=== PATIENT | female | born 1955 | race Caucasian/White ===

== ENCOUNTER → 2019-07-09 13:46 | Outpatient (BNVA) | payer BC, SELFPAY | PROVIDERS: Family Provider Family Medicine; PCP Family Medicine; Visit Provider Internal Medicine Rheumatology | DX: M81.0 Age-related osteoporosis without current pathological fracture (principal); Z79.899 Other long term (current) drug therapy; Z71.3 Dietary counseling and surveillance; Z68.33 Body mass index [BMI] 33.0-33.9, adult | CPT/HCPCS: 36415; 99214 ==

== ENCOUNTER → 2019-07-09 14:45 | Outpatient (BNVA) | payer BC, SELFPAY | PROVIDERS: Family Provider Family Medicine; PCP Family Medicine; Visit Provider Internal Medicine Rheumatology | DX: M81.0 Age-related osteoporosis without current pathological fracture (principal); Z79.899 Other long term (current) drug therapy; Z71.3 Dietary counseling and surveillance | CPT/HCPCS: 85025 ==

== ENCOUNTER 2019-07-09 15:09 | Outpatient (CLI) | payer BC, SELFPAY ==
--- NOTE | 2019-07-09 15:19 | XR_ITS ---
WS: [id number] HAND LEFT TECHNIQUE: 3 views of the left hand CLINICAL INFORMATION: osteoporosis COMPARISON: None. FINDINGS: Hypertrophic spurring involving the second and third metacarpal heads. Marked periarticular hypertrop hic changes with ankylosis involving the third PIP and DIP joints with soft tissue edema. Smaller per iarticular hypertrophic changes involving the fourth DIP. Radiocarpal joint: Normal. Carpal bones: Normal. XR/XR hand LT min 3V* [id number] IMPRESSION: 1. Marked hypertrophic changes and ankylosis involving the third PIP and DIP j oints with soft tissue edema 2. Hypertrophic spurring second third metacarpal heads.
--- NOTE | 2019-07-09 15:19 | XR_ITS ---
WS: [id number] HAND RIGHT TECHNIQUE: 3 views of the right hand CLINICAL INFORMATION: osteoporosis COMPARISON: None. FINDINGS: Normal metacarpals. Normal MCP joint. Metacarpal heads are normal in appearance. Normal PIP and DIP j oints. No evidence of acute fracture or dislocation. Radiocarpal joint: Normal. Carpal bones: Normal. XR/XR hand RT min 3V* [id number] IMPRESSION: Normal right hand.
== END 2019-07-09 15:10 | disposition home or self-care (01) ==
PROVIDERS: Family Provider Family Medicine; PCP Family Medicine; Visit Provider Internal Medicine Rheumatology
DX: M81.0 Age-related osteoporosis without current pathological fracture (principal); M24.642 Ankylosis, left hand; Z79.899 Other long term (current) drug therapy
CPT/HCPCS: 73130; 80076; 82306; 82565

== ENCOUNTER → 2019-10-15 09:41 | Outpatient (BNVA) | payer BC, SELFPAY | PROVIDERS: Family Provider Family Medicine; PCP Family Medicine; Visit Provider Internal Medicine Rheumatology | DX: Z79.899 Other long term (current) drug therapy (principal); M81.0 Age-related osteoporosis without current pathological fracture; Q68.1 Congenital deformity of finger(s) and hand; F17.210 Nicotine dependence, cigarettes, uncomplicated | CPT/HCPCS: 36415; 82310; 82565; 99214 ==

== ENCOUNTER → 2020-04-21 08:36 | Outpatient (BNVA) | payer BC, SELFPAY | PROVIDERS: Family Provider Family Medicine; PCP Family Medicine; Visit Provider Internal Medicine Rheumatology | DX: M81.0 Age-related osteoporosis without current pathological fracture (principal); Z79.899 Other long term (current) drug therapy; Z71.3 Dietary counseling and surveillance; Q68.1 Congenital deformity of finger(s) and hand; Z68.34 Body mass index [BMI] 34.0-34.9, adult | CPT/HCPCS: 36415; 82306; 82310; 82565; 99214 ==

== ENCOUNTER 2020-04-27 14:59 | Outpatient (CLI) | payer BC, OTHER, SELFPAY ==
[2020-04-27 15:10] VITALS: BP 153/92; PULSE 93; TEMP 36.6; O2SAT 90
[2020-04-27] MEDS: denosumab 60 mg SDV SUBCUT (15:25)
[2020-04-27 15:29] VITALS: BMI 34.0
[2020-04-27 15:50] VITALS: BP 142/92; PULSE 83; TEMP 36.9; O2SAT 92
== END 2020-04-27 15:00 | disposition home or self-care (01) ==
LOC: RHEOACUTE 15:01
PROVIDERS: Family Provider Family Medicine; PCP Family Medicine; Visit Provider Internal Medicine Rheumatology
DX: M81.0 Age-related osteoporosis without current pathological fracture (principal)
CPT/HCPCS: 96372; J0897

== ENCOUNTER → 2020-07-20 11:00 | Outpatient (BNVA) | payer BC, SELFPAY | PROVIDERS: Family Provider Family Medicine; PCP Family Medicine; Visit Provider Nurse Practitioner Family | DX: K04.7 Periapical abscess without sinus (principal); R03.0 Elevated blood-pressure reading, without diagnosis of hypertension; E55.9 Vitamin D deficiency, unspecified | CPT/HCPCS: 80053; 80061; 82306; 84443 ==

== ENCOUNTER 2020-11-10 11:27 | Outpatient (CLI) | payer BC, SELFPAY ==
[2020-11-10 12:49] LABS: Albumin Level 3.7 g/dL (3.5-5.2); Calcium 8.5 mg/dL (8.5-10.5); Glomerular Filtration Rate 72.2 mL/min (90-130)
[2020-11-10 13:04] LABS: 25 Hydroxy Vitamin D 33 ng/mL (30-100)
[2020-11-10 13:40] VITALS: BP 154/85; PULSE 93; RESP 20; TEMP 36.2; O2SAT 95
[2020-11-10] MEDS: denosumab 60 mg SDV SUBCUT (13:40)
== END 2020-11-10 11:28 | disposition home or self-care (01) ==
LOC: ONCMED 11:32
PROVIDERS: Family Provider Family Medicine; PCP Family Medicine; Referring Provider Internal Medicine Rheumatology; Visit Provider Internal Medicine Rheumatology
DX: E55.9 Vitamin D deficiency, unspecified (principal); M81.0 Age-related osteoporosis without current pathological fracture; Z79.899 Other long term (current) drug therapy; Q68.1 Congenital deformity of finger(s) and hand; Z71.3 Dietary counseling and surveillance; F17.210 Nicotine dependence, cigarettes, uncomplicated
CPT/HCPCS: 36415; 82040; 82306; 82310; 82565; 96372; 99214; J0897

== ENCOUNTER → 2021-04-25 14:44 | Outpatient (BNVA) | payer BC, MEDICARE, SELFPAY | PROVIDERS: Family Provider Family Medicine; PCP Family Medicine; Visit Provider Nurse Practitioner Family | DX: R30.0 Dysuria (principal) | CPT/HCPCS: 81000 ==

== ENCOUNTER → 2021-05-23 11:28 | Outpatient (BNVA) | payer BC, MEDICARE, SELFPAY | PROVIDERS: Family Provider Family Medicine; PCP Family Medicine; Visit Provider Internal Medicine Rheumatology | DX: M81.0 Age-related osteoporosis without current pathological fracture (principal); Z79.899 Other long term (current) drug therapy | CPT/HCPCS: 80076; 82306; 82310; 82565; 85025; 86140 ==

== ENCOUNTER → 2021-12-28 14:48 | Outpatient (BNVA) | payer MEDICARE, SELFPAY | PROVIDERS: Family Provider Family Medicine; PCP Family Medicine; Visit Provider Nurse Practitioner Family | DX: R30.0 Dysuria (principal); N39.0 Urinary tract infection, site not specified; R31.9 Hematuria, unspecified; R50.9 Fever, unspecified | CPT/HCPCS: 80053; 81000; 81003; 85025 ==

== ENCOUNTER → 2021-12-29 08:13 | Outpatient (BNVA) | payer MEDICARE, SELFPAY | PROVIDERS: Family Provider Family Medicine; PCP Family Medicine; Visit Provider Nurse Practitioner Family | DX: R30.0 Dysuria (principal); N39.0 Urinary tract infection, site not specified; R31.9 Hematuria, unspecified; R50.9 Fever, unspecified | CPT/HCPCS: 87077; 87086; 87184 ==

== ENCOUNTER → 2022-04-23 09:43 | Outpatient (BNVA) | payer MEDICARE, SELFPAY | PROVIDERS: Family Provider Family Medicine; PCP Family Medicine; Visit Provider Nurse Practitioner Family | DX: R41.82 Altered mental status, unspecified (principal); N39.0 Urinary tract infection, site not specified; R31.9 Hematuria, unspecified | CPT/HCPCS: 81003; 87077; 87086; 87184 ==

== ENCOUNTER → 2022-05-16 08:50 | Outpatient (BNVA) | payer MEDICARE, SELFPAY | PROVIDERS: Family Provider Family Medicine; PCP Family Medicine; Visit Provider Nurse Practitioner Family | DX: R30.0 Dysuria (principal) | CPT/HCPCS: 81003; 87077; 87086; 87184 ==

== ENCOUNTER → 2022-05-29 12:51 | Outpatient (BNVA) | payer MEDICARE, SELFPAY | PROVIDERS: Family Provider Family Medicine; PCP Nurse Practitioner Family; Visit Provider Internal Medicine Rheumatology | DX: M81.0 Age-related osteoporosis without current pathological fracture (principal); Z79.899 Other long term (current) drug therapy; Z71.3 Dietary counseling and surveillance; Q68.1 Congenital deformity of finger(s) and hand | CPT/HCPCS: 36415; 80076; 82306; 82310; 82565; 85025; 86140; 99214 ==

== ENCOUNTER 2022-06-18 14:03 | Outpatient (CLI) | payer MEDICARE, SELFPAY ==
--- NOTE | 2022-06-18 14:30 | XR_ITS ---
WS: [id number] DEXA (DUAL ENERGY X-RAY ABSORPTIOMETRY) Bone mineral density was performed using a [employer] machine. HISTORY: M81.0 - Age-related osteoporosis without current pathology... COMPARISON: 01/01/2019 Lumbar spine BMD (L1-L4): 0.872 g/cm2 T score: -2.6 Z score: -1.7 Total hip BMD: Left: 0.866 g/cm2. T score: -1.1 Z score: -0.4 Right: 0.841 g/cm2. T score: -1.3 Z score: -0.6 10 year probability of a major osteoporotic fracture is 19.1%. Compared to the prior study from 01/01/2019. Lumbar spine bone mineral density has decreased by 5.2%. Bilateral hips bone mineral density has increased by 0.7%. XR/XR DEXA axial skeleton* [id number] IMPRESSION: OSTEOPOROSIS based upon the WHO classification for females. Significant decrease in bone mineral density within the lumbar spine since the prior study. No significant change involving the hips.
== END 2022-06-18 14:04 | disposition home or self-care (01) ==
LOC: RAD 14:09
PROVIDERS: Family Provider Family Medicine; PCP Nurse Practitioner Family; Visit Provider Internal Medicine Rheumatology
DX: M81.0 Age-related osteoporosis without current pathological fracture (principal)
CPT/HCPCS: 77080

== ENCOUNTER → 2022-07-30 15:38 | Outpatient (BNVA) | payer MEDICARE, SELFPAY | PROVIDERS: Family Provider Family Medicine; PCP Nurse Practitioner Family; Visit Provider Nurse Practitioner Family | DX: R31.9 Hematuria, unspecified (principal) | CPT/HCPCS: 81003; 87077; 87086; 87184 ==

== ENCOUNTER 2022-08-10 09:33 | Oncology outpatient (recurring) (ONCR) | payer MEDICARE, SELFPAY ==
--- NOTE | 2022-08-10 10:01 | PC.NURSE ---
Patient arrived for scheduled prolia injection, however patient stated she had recent dental extractions mid june for denture application. Clarified with Dr. Flynn office, Dr Silvestre MESSINA today but Dr. Lubin states from rheumatology standpoint ok to give prolia however asked us to clarify with Dr. Briggs DDS. Call placed Dr. Briggs recommends prolia to be held until 4 months from extraction, which occurred on 07/06/22. Kym ma at Dr. Rivers office. Patient to re-schedule in 4 months. Kizzy DIAZN, RN
== END 2022-08-10 23:59 | disposition home or self-care (01) ==
PROVIDERS: PCP Nurse Practitioner Family; Visit Provider Internal Medicine Rheumatology
DX: Z53.9 Procedure and treatment not carried out, unspecified reason (principal)

== ENCOUNTER → 2022-08-22 11:30 | Outpatient (BNVA) | payer MEDICARE, SELFPAY | PROVIDERS: PCP Nurse Practitioner Family; Visit Provider Nurse Practitioner | DX: J44.9 Chronic obstructive pulmonary disease, unspecified (principal); R91.1 Solitary pulmonary nodule | CPT/HCPCS: 71046 ==

== ENCOUNTER 2022-10-30 09:58 | Outpatient (CLI) | payer MEDICARE, SELFPAY ==
--- NOTE | 2022-10-30 10:13 | CT_ITS ---
WS: [id number] CT CHEST TECHNIQUE: Noncontrast CT of the chest with coronal and sagittal reformatted images. CLINICAL INFORMATION: LYMPHADENOPATHY, MEDINASTINAL COMPARISON: None. DLP: 232.[address] scans at [facility] use at least one of these dose optimization techniques: automated e xposure control; mA and/or kV adjustment per patient size (includes targeted exams where dose is matc hed to clinical indication); or iterative reconstruction. FINDINGS: Partially evaluated large bulky heterogeneous mass involving the RIGHT kidney measuring 11.2 x 2.6 cm suspicious for renal neoplasm. Recommend further evaluation with contrast-enhanced CT abdomen pelvis . This is only partially included on the upper abdominal images. Normal caliber thoracic aorta. Aortic calcification. Numerous mediastinal and peribronchial lymph nod es not pathologically enlarged. Calcified RIGHT greater than LEFT hilar nodes. No axillary lymphadeno colten. Moderate chronic emphysematous changes. Interstitial thickening in the lung bases. A few calcified gr anulomas. No focal pneumonia or pleural fluid. Slight subsegmental atelectasis in the lung bases. Normal LEFT adrenal gland. Small esophageal hiatal hernia. A few splenic granulomas. Noncontrast panc reas appears normal. Moderate thoracic kyphosis. Anterior hypertrophic changes mid thoracic spine. Posterior projecting RI GHT thyroid nodule measuring 1.8 cm. Chronic appearing RIGHT 7th rib fracture with callus formation. CT/CT chest wo con [id number] IMPRESSION: 1. Partially evaluated large heterogeneous mass involving the RIGHT kidney trini suring 11.2 x 2.6 cm suspicious for renal neoplasm. Recommend further evaluatio n with contrast-enhanced CT abdomen pelvis. 2. Numerous mediastinal and peribronchial lymph nodes not pathologically enlar ged. 3. Lobulated RIGHT thyroid lobe with suggestion of posterior projecting RIGHT thyroid nodule measuring 1.8 cm. This could followed up with ultrasound. 4. Moderate chronic emphysematous changes. Notified JORDYN Day at 10/30/2022 11:49 AM.
== END 2022-10-30 09:59 | disposition home or self-care (01) ==
PROVIDERS: PCP Nurse Practitioner; Visit Provider Nurse Practitioner
DX: R59.0 Localized enlarged lymph nodes (principal); N28.89 Other specified disorders of kidney and ureter; E07.9 Disorder of thyroid, unspecified
CPT/HCPCS: 71250

== ENCOUNTER 2022-11-09 09:58 | Oncology outpatient (recurring) (ONCR) | payer MEDICARE, SELFPAY ==
[2022-11-09 10:45] VITALS: BP 126/83; PULSE 82; RESP 16; TEMP 36.6; O2SAT 95
[2022-11-09 11:13] LABS: Albumin Level 3.7 g/dL (3.5-5.2); Calcium 8.5 mg/dL (8.5-10.5); Glomerular Filtration Rate 71.8 mL/min (90-130)
[2022-11-09 11:29] LABS: 25 Hydroxy Vitamin D 27 ng/mL (30-100)
== END 2022-11-09 23:59 | disposition home or self-care (01) ==
PROVIDERS: PCP Nurse Practitioner; Visit Provider Internal Medicine Rheumatology
DX: M81.0 Age-related osteoporosis without current pathological fracture (principal)
CPT/HCPCS: 36415; 82040; 82306; 82310; 82565

== ENCOUNTER 2022-11-14 08:21 | Outpatient (CLI) | payer MEDICARE, SELFPAY ==
--- NOTE | 2022-11-14 08:39 | US_ITS ---
WS: [id number] ULTRASOUND THYROID TECHNIQUE: Ultrasound of the thyroid. CLINICAL INFORMATION: THYROID ENGLARGEMENT COMPARISON: None. FINDINGS: Thyroid: Right and left thyroid lobes are normal in size and echotexture. Right thyroid lobe: 4.3 cm x 1.6 cm x 2.1 cm Complex RIGHT thyroid nodule measuring 1.1 x 1.1 x 0.5 cm Left thyroid lobe: 3.8 cm x 1.5 cm x 1.6 cm. Isthmus: 0.2 mm. Cervical lymphadenopathy: None. US/US thyroid [id number] IMPRESSION: 1. Complex cystic and solid RIGHT thyroid nodule measuring 1.1 x 1.1 x 1.5 cm. Recommend 12 month follow-up versus FNA. 2. No suspicious LEFT thyroid nodules.
--- NOTE | 2022-11-14 08:39 | CT_ITS ---
WS: [id number] CT ABDOMEN PELVIS TECHNIQUE: Noncontrast CT of the abdomen and pelvis with coronal and sagittal reformatted images. CLINICAL INFORMATION: R KIDNEY MASS COMPARISON: CT chest October 30, 2022 DLP: 531.[address] scans at [facility] use at least one of these dose optimization techniques: automated e xposure control; mA and/or kV adjustment per patient size (includes targeted exams where dose is matc hed to clinical indication); or iterative reconstruction. FINDINGS: Large complex heterogeneous mass involving the RIGHT kidney measures approximately 11.0 x 11.1 x 8.0 cm AP by transverse by craniocaudal. Mass demonstrates prominent internal and surrounding vascularity with heterogeneous internal contents. Deformity and compression of the visualized RIGHT kidney. Find ings most compatible with renal neoplasm. Recommend urology consultation. Renal mass abuts the undersurface of the RIGHT hepatic lobe. . Expansile low-attenuation RIGHT renal vein suspicious for renal vein thrombosis extending to the IVC. Contrast not administered. Small cyst in the liver dome. Normal GE junction. Lung bases are well aerated. Tiny noncalcified nodu le LEFT lower lobe measuring 3.8 mm. Adrenal glands appear normal. Small low-attenuation LEFT renal l esion too small to characterize measuring 13 mm. No hydronephrosis in the LEFT kidney. Noncontrast sp ryan is normal. Sigmoid diverticulosis. No evidence of acute diverticulitis. Enlarged lymph nodes in the mena hepati s. A few normal sized periaortic lymph nodes. A few slightly prominent aortocaval lymph nodes. No pelvic or inguinal lymphadenopathy. CT/CT abdomen pelvis wo con [id number] IMPRESSION: 1. Large heterogeneous RIGHT renal mass described above. Recommend urology con sultation for resection. 2. Suspected expansile low-attenuation thrombus in the RIGHT renal vein extend ing to the IVC junction. 3. Enlarged lymph nodes in the mena hepatis. A few slight prominent but russ l sized aortocaval and periaortic lymph nodes. 4. No hydronephrosis in either kidney. 5. Noncalcified pulmonary nodule LEFT lower lobe measuring 3.8 mm. 6. LEFT renal lesion too small to characterize measuring 13 mm. This can be fu rther evaluated with ultrasound or contrast.
== END 2022-11-14 08:22 | disposition home or self-care (01) ==
PROVIDERS: PCP Nurse Practitioner; Visit Provider Nurse Practitioner
DX: N28.89 Other specified disorders of kidney and ureter (principal); E04.1 Nontoxic single thyroid nodule; R59.0 Localized enlarged lymph nodes; R91.1 Solitary pulmonary nodule
CPT/HCPCS: 74176; 76536

== ENCOUNTER 2022-11-14 09:28 | Oncology outpatient (recurring) (ONCR) | payer MEDICARE, SELFPAY ==
[2022-11-14] MEDS: denosumab 60 mg SDV SUBCUT (09:53)
[2022-11-14 09:57] VITALS: BP 166/84; PULSE 81; TEMP 36.5; O2SAT 97
== END 2022-12-10 23:59 | disposition home or self-care (01) ==
PROVIDERS: PCP Nurse Practitioner; Visit Provider Internal Medicine Rheumatology
DX: M81.0 Age-related osteoporosis without current pathological fracture (principal)
CPT/HCPCS: 96372; J0897

== ENCOUNTER → 2022-11-27 13:16 | Outpatient (BNVA) | payer MEDICARE, SELFPAY | PROVIDERS: PCP Nurse Practitioner; Visit Provider Internal Medicine Rheumatology | DX: M81.0 Age-related osteoporosis without current pathological fracture (principal); M79.672 Pain in left foot; Z79.899 Other long term (current) drug therapy; Z71.3 Dietary counseling and surveillance; Q68.1 Congenital deformity of finger(s) and hand | CPT/HCPCS: 73630; 99214 ==

== ENCOUNTER 2023-01-31 15:44 | Outpatient (CLI) | payer MEDICARE, SELFPAY ==
--- NOTE | 2023-01-31 | MRR_ITS ---
PROCEDURE INFORMATION: Exam: MR Abdomen Without and With Contrast Exam date and time: 01/31/2023 4:28 PM Age: 68 years old Clinical indication: Abnormal findings; Mass, lump, or swelling; Kidney, right; Additional info: Right kidney mass TECHNIQUE: Imaging protocol: Magnetic resonance imaging of the abdomen without and with contrast. COMPARISON: No relevant prior studies available. FINDINGS: Liver: 1.0 cm hepatic cyst. Gallbladder and bile ducts: Unremarkable. No stones. No ductal dilation. Pancreas: Unremarkable. No ductal dilation. Spleen: Unremarkable. No splenomegaly. Adrenal glands: Unremarkable. No mass. Kidneys and ureters: 11.9 x 11.7 x 11.6 cm inhomogenous lobulated enhancing mass in the right kidney. 1.8 cm right renal cyst. 1.6 cm left renal cyst. Stomach and bowel: Visualized stomach and intestines are unremarkable. Intraperitoneal space: No free fluid. Vasculature: The right renal mass extends into the renal vein with possible slight extension into the superior vena cava. Bones/joints: Unremarkable. Soft tissues: Unremarkable. MR/MR abdomen wo/w con* [id number] IMPRESSION: 1. 11.9 cm inhomogenous mass in the right kidney with extension into the right renal vein and with possible slight extension into the IVC. This is most consistent with renal cell carcinoma. COMMENTS: Consistent with the [employer]'s Incidental Findings Committee white paper (J Am Krish Radiol 2018): Any incidental renal lesion less than 1 cm or classified as too small to characterize, or any incidental cystic renal lesion characterized as simple-appearing, is likely benign. No follow-up imaging is recommended for these lesions per consensus recommendations based on imaging criteria.
--- NOTE | 2023-01-31 | MRR_ITS ---
PROCEDURE INFORMATION: Exam: MR Pelvis Without Contrast, Bladder Exam date and time: 01/31/2023 4:28 PM Age: 68 years old Clinical indication: Abnormal findings; Abnormal imaging test; Additional info: Right kidney mass TECHNIQUE: Imaging protocol: Magnetic resonance imaging of the pelvis without contrast. Exam focused on the bladder. Contrast material: MULTIHANCE; Contrast volume: 19 ml; Contrast route: INTRAVENOUS (IV); COMPARISON: No relevant prior studies available. FINDINGS: Intraperitoneal space: No free fluid. Urinary bladder: The urinary bladder is partially decompressed. No wall thickening or filling defect. Reproductive: The uterus is of normal size. The endometrial thickness measures 9 mm with possible endometrial fluid. The ovaries are unremarkable. Bones/joints: Unremarkable. No fracture. Soft tissues: Unremarkable. Kidneys and ureters: The visualized distal ureters are unremarkable. Stomach and bowel: Diverticulosis of the colon. MR/MR pelvis wo/w con [id number] IMPRESSION: 1. No visible mass or abnormality within the distal ureters or urinary bladder. 2. Thickening of the endometrium or possible endometrial fluid. Follow-up with pelvic ultrasound is suggested.
[2023-01-31] MEDS: gadobenate dimeglumine 20 mL vial IV (17:32)
== END 2023-01-31 15:45 | disposition home or self-care (01) ==
PROVIDERS: PCP Nurse Practitioner; Visit Provider Nurse Practitioner
DX: N28.89 Other specified disorders of kidney and ureter (principal); R93.89 Abnormal findings on diagnostic imaging of other specified body structures; K76.89 Other specified diseases of liver
CPT/HCPCS: 72197; 74183; A9577